=== PATIENT | female | born 1960 | race African-American/Black ===

== ENCOUNTER 2018-06-09 11:23 | Emergency (ER) | payer MEDICAID ==
[~2018-06-09] VITALS: Ht 167.6 cm; Wt 72.7 kg
[~2018-06-09 11:23] MED LIST: ASPIRIN325 MG PO; BRILINTA90 MG PO; COREG 3.1253.125 MG PO; KEPPRA1000 MG PO; LISINOPRIL2.5 MG PO; NICODERM C1 PATCH .1 TRANSDERM; PAXIL20 MG PO; PLAQUENIL200 MG PO; ZOCOR20 MG PO
[2018-06-09 11:24] VITALS: Ht 167.6 cm; Wt 72.7 kg
[2018-06-09 11:44] LABS: BASOPHILS 0.4 % (0-2); EOSINOPHILS 3.3 % (0-7); HEMATOCRIT 39.4 % (36.0-48.0); HEMOGLOBIN 13.3 g/dL (12-16); IMMATURE GRANULOCYTES 0.2 % (0-5); LYMPHOCYTES 35.1 % (15-50); MCH 26.7 pg (26.0-34.0); MCHC 33.8 g/dL (31.0-37.0); MEAN PLATELET VOLUME 9.4 fL (7.4-10.4); MONOCYTES 5.2 % (2-11); NEUTROPHILS 55.8 % (40-80); PLATELET COUNT 222 10x3/uL (130-400); RBC 4.99 10x6/uL (4.00-5.40); RDW 14.8 % (11.5-14.5); WBC 5.5 10x3/uL (4.8-10.8)
[2018-06-09 12:11] LABS: ALBUMIN 3.7 g/dL (3.4-5.0); ALKALINE PHOSPHATASE 82 U/L (46-116); ALT (SGPT) 22 U/L (10-68); BILIRUBIN - TOTAL 0.24 mg/dL (0.2-1.3); CALC OSMOLALITY 276 mosm/kg (275-300); CALCIUM 9.5 mg/dL (8.5-10.1); CARBON DIOXIDE 25.8 mmol/L (21.0-32.0); CHLORIDE - SERUM 106 mmol/L (98-107); CREATININE - SERUM 0.7 mg/dL (0.6-1.3); GLUCOSE 103 mg/dL (74-106); POTASSIUM - SERUM 3.7 mmol/L (3.5-5.1); PROTEIN - SERUM 7.1 g/dL (6.4-8.2); SODIUM 140 mmol/L (136-145); UREA NITROGEN 8 mg/dL (7-18); eGFR NON AFRICAN AMERICAN > 90 mL/min (90-120)
[2018-06-09 12:23] LABS: APPEARANCE CLEAR (CLEAR); BILIRUBIN NEGATIVE (NEGATIVE); COLOR YELLOW (YELLOW); GLUCOSE NEGATIVE (NEGATIVE); KETONE NEGATIVE (NEGATIVE); NITRITE NEGATIVE (NEGATIVE); PROTEIN NEGATIVE (NEGATIVE); UROBILINOGEN NORMAL (NORMAL)
[2018-06-09 12:24] LABS: BACTERIA FEW /hpf (NONE SEEN); EPITHELIAL CELLS 0-5 /hpf (0-5); RED CELLS - URINE 0-5 /hpf (0-5)
[2018-06-09 13:11] VITALS: BP 153/94
== END 2018-06-09 13:13 | disposition home or self-care (01) ==
LOC: D.ER 11:23
PROVIDERS: Emergency Medicine
DX: F41.0 Panic disorder [episodic paroxysmal anxiety] (principal); G40.909 Epilepsy, unspecified, not intractable, without status epilepticus